=== PATIENT | female | born 2000 | race Hispanic/Latino ===

== ENCOUNTER 2023-03-10 14:49 | Emergency (ER) | payer SELFPAY ==
[2023-03-10] MEDS ORDERED: Ketorolac Tromethamine 30 MG/ML VIAL ONE (16:36)
[2023-03-10] MEDS ORDERED: predniSONE 20 MG TAB ONE (16:36)
[2023-03-10] MEDS ORDERED: Acetaminophen/Codeine 30-300mg Tablet ONE (16:37)
== END 2023-03-10 17:15 | disposition home or self-care (01) ==
LOC: ERS 14:49
DX: M54.42 Lumbago with sciatica, left side (principal)
CPT/HCPCS: 96372; 99283; J1885; J7512